=== PATIENT | male | born 1955 | race Caucasian/White ===

== ENCOUNTER 2019-10-06 20:55 | Emergency (ER) | payer OTHER ==
[~2019-10-06] VITALS: Ht 170.2 cm; Wt 100.7 kg
[2019-10-06] MEDS ORDERED: AMLO10TA7 PO (21:08)
[2019-10-06] MEDS ORDERED: LISI-603 PO (21:08)
[2019-10-06] MEDS ORDERED: ASPI-605 PO (21:08)
--- NOTE | 2019-10-06 21:20 | NUR ---
Dr. Miller at bedside for MSE.
[2019-10-06] MEDS ORDERED: HYDROMORPHONE 1 MG/1 ML DISP.SYRIN ONE ×2 (21:27→23:12)
[2019-10-06] MEDS ORDERED: ONDANSETRON 4 MG/2 ML VIAL ONE ×2 (21:27→23:12)
[2019-10-06] MEDS ORDERED: HYDROMORPHONE 1 MG/1 ML DISP.SYRIN IV ONE ×2 (21:30→23:15)
[2019-10-06] MEDS ORDERED: IV NORMAL SALINE 1000 ML BAG IV ONE (21:30)
[2019-10-06] MEDS ORDERED: ONDANSETRON 4 MG/2 ML VIAL IV ONE ×2 (21:30→23:15)
[2019-10-06 21:32] LABS: BASOPHILS % (AUTO) 0.4 % (0.0-2.0); EOSINOPHILS # (AUTO) 0.2 K/uL (0.0-0.7); EOSINOPHILS % (AUTO) 1.4 % (0.0-7.0); HEMATOCRIT 44.6 % (36.7-47.1); LYMPHOCYTES # (AUTO) 2.3 K/uL (20.0-40.0); LYMPHOCYTES % (AUTO) 18.5 % (20.5-51.5); MEAN CORPUSCULAR HEMOGLOBIN 32.3 uug (23.8-33.4); MEAN CORPUSCULAR HGB CONC 34 g/dL (32.5-36.3); MEAN CORPUSCULAR VOLUME 96.1 fL (73.0-96.2); MONOCYTES # (AUTO) 0.7 K/uL (2.0-10.0); MONOCYTES % (AUTO) 5.7 % (0.0-11.0); NEUTROPHILS # (AUTO) 9.4 K/uL (1.8-8.9); PLATELET COUNT (AUTO) 285 K/uL (152-348); RED BLOOD CELL COUNT(AUTO) 4.64 MIL/uL (4.06-5.63); WHITE BLOOD COUNT (AUTO) 12.7 K/uL (3.6-10.2)
[2019-10-06 21:38] LABS: CREATININE 1.4 mg/dL (0.6-1.3); POTASSIUM 3.9 mmol/L (3.5-5.1)
--- NOTE | 2019-10-06 21:38 | NUR ---
Xray at bedside.
[2019-10-06 21:43] LABS: BILIRUBIN,DIRECT 0.1 mg/dL (0.0-0.2); BILIRUBIN,TOTAL 0.5 mg/dL (0.2-1.0); TOTAL PROTEIN, SERUM 7.5 g/dL (6.4-8.2)
--- NOTE | 2019-10-06 21:43 | NUR ---
Pt provided urine sample, sent to lab.
--- NOTE | 2019-10-06 21:46 | NUR ---
Pt out of ER for CT.
[2019-10-06 21:50] LABS: *BILIRUBIN,URIN NEGATIVE (NEGATIVE); *BLOOD, URINE 1+ (NEGATIVE); *CLARITY,URINE CLEAR (CLEAR); *COLOR,URINE YELLOW (YELLOW); *KETONES,URINE NEGATIVE (NEGATIVE); *UROBILINOGEN,URINE 0.2 E.U./dl (NORMAL); LEUKOCYTE ESTERASE ,URINE NEGATIVE (NEGATIVE); NITRITE, URINE NEGATIVE (NEGATIVE); PH,URINE 7.5 (5.0-8.0); UGLUCOSE NEGATIVE (NEGATIVE)
[2019-10-06 21:59] LABS: BACTERIA,URINE FEW /HPF (NONE SEEN); WBC,URINE NONE SEEN /HPF (0-3)
--- NOTE | 2019-10-06 22:00 | NUR ---
Pt back to ER from CT.
[2019-10-06] MEDS ORDERED: SULFAMETH/TRIMETH 800/160 MG TABLET ONE (23:36)
[2019-10-06] MEDS ORDERED: SULFAMETH/TRIMETH 800/160 MG TABLET PO ONE (23:45)
--- NOTE | 2019-10-06 23:47 | NUR ---
Patient discharged to home in stable conditon. Written and verbal after care instructions given. Patient verbalizes understanding of instructions. Pt ambulated out of ER with steady gait, no acute signs of distress, VSS, all belongings taken, IV site discontinued, pt to take taxi home.
[2019-10-06 23:48] VITALS: BP 149/95
== END 2019-10-06 23:49 | disposition home or self-care (01) ==
LOC: ER 21:04
DX: N39.0 Urinary tract infection, site not specified (principal); F17.200 Nicotine dependence, unspecified, uncomplicated; Z79.82 Long term (current) use of aspirin; Z79.899 Other long term (current) drug therapy
CPT/HCPCS: 36415; 71045; 74176; 80048; 80076; 81000; 81001; 83690; 84484; 85025; 85730; 87086; 93005; 96374; 96375; 96376; 99284; J1170 ×2; J2405 ×2; 70030-TC; A4663; J7030

== ENCOUNTER 2021-08-04 10:27 | Emergency (ER) | payer MEDICARE, OTHER ==
[~2021-08-04] VITALS: Ht 172.7 cm; Wt 99.8 kg
[~2021-08-04 10:27] MED LIST: AMLO10TA59 PO; ASPI-605 PO; LISI20TA30 PO
--- NOTE | 2021-08-04 10:38 | NUR ---
Dr Palm at the bedside for MSE.
[2021-08-04] MEDS ORDERED: TDAP DIPH,PERTUSS,TET VAC/PF 0.5 ML DISP.SYRIN IM ONE ×2 (10:45→10:51)
[2021-08-04] MEDS ORDERED: IBUP-1957 PO (10:46)
[2021-08-04] MEDS ORDERED: CEPH500T PO (10:46)
[2021-08-04] MEDS ORDERED: SILV50CR32 TP (10:46)
[2021-08-04] MEDS ORDERED: SILVER SULFADIAZINE 1% CREAM 25 GM TUBE TP ONE (10:58)
[2021-08-04] MEDS ORDERED: SILVER SULFADIAZINE 1% CREAM 50 GM TP ONE (11:00)
--- NOTE | 2021-08-04 11:00 | NUR ---
Dressing applied to Rt thigh per pt's request.
[2021-08-04 11:01] VITALS: BP 100/56
--- NOTE | 2021-08-04 11:01 | NUR ---
Patient discharged to home in stable condition. Written and verbal after care instructions given. Patient verbalizes understanding of instructions. Stressed follow up or return to ER for worsening s/s.
== END 2021-08-04 11:02 | disposition home or self-care (01) ==
LOC: ER 10:27
DX: T24.211A Burn of second degree of right thigh, initial encounter (principal); T31.0 Burns involving less than 10% of body surface; B96.89 Other specified bacterial agents as the cause of diseases classified elsewhere; X10.0XXA Contact with hot drinks, initial encounter; Y92.89 Other specified places as the place of occurrence of the external cause
CPT/HCPCS: 16020; 90715; A4663

== ENCOUNTER 2024-01-14 15:17 | Emergency (ER) | payer MEDICARE, OTHER ==
[~2024-01-14] VITALS: Ht 200.7 cm; Wt 96.2 kg
[~2024-01-14 15:17] MED LIST changes: +CEPH500T PO; +IBUP-1957 PO; +SILV50CR32 TP
[2024-01-14] MEDS: TRIAMCINOLONE ACETONIDE 40 MG/1 ML VIAL MC ONE (16:45)
[2024-01-14] MEDS: LIDOCAINE 2%-EPI 1:100,000 20 ML VIAL IJ ONE (16:45)
[2024-01-14] MEDS: LIDOCAINE HCL 2% 20 ML VIAL IJ ONE (16:45)
[2024-01-14] MEDS ORDERED: LIDOCAINE HCL 2% 20 ML VIAL ONE (17:17)
[2024-01-14] MEDS ORDERED: LIDOCAINE 2%-EPI 1:100,000 20 ML VIAL ONE (17:17)
[2024-01-14] MEDS ORDERED: HYDR-3980 PO (18:13)
[2024-01-14 18:17] VITALS: BP 132/81; O2SAT 98
== END 2024-01-14 18:24 | disposition home or self-care (01) ==
LOC: ER 15:19
DX: M17.0 Bilateral primary osteoarthritis of knee (principal); F17.200 Nicotine dependence, unspecified, uncomplicated; Z79.82 Long term (current) use of aspirin; Z98.890 Other specified postprocedural states; Z79.899 Other long term (current) drug therapy
CPT/HCPCS: 20610; 99283; J3490; J3301; A4606; A4663